=== PATIENT | male | born 1990 | race Caucasian/White ===

== ENCOUNTER 2022-11-24 11:20 | Emergency (ER) | payer BC, OTHER ==
[~2022-11-24] VITALS: Ht 182.9 cm; Wt 72.7 kg
[2022-11-24 11:52] VITALS: BP 105/48
[2022-11-24] MEDS ORDERED: cefTRIAXone 1GM/50ML D5W 50 ML IV ONE (12:45)
[2022-11-24 13:09] LABS: Basophils # (auto) 0 10 ^3/uL (0-0.2); Basophils % (auto) 0.6 % (0.0-2.0); Eosinophils # (auto) 0.2 10 ^3/uL (0-0.8); Eosinophils % (auto) 4.3 % (0.0-7.0); Hematocrit 44.2 % (41.0-53.0); Hemoglobin 15.1 g/dL (13.5-17.5); Lymphocytes # (auto) 2.2 10 ^3/uL (0.4-5.4); Lymphocytes % (auto) 41.1 % (10.0-50.0); Mean Corpuscular Hemoglobin 30.5 pg (28.0-32.0); Mean Corpuscular Hgb Conc. 34.2 g/dL (32.0-36.0); Mean Corpuscular Volume 89.3 fL (80.0-100.0); Monocytes # (auto) 0.5 10 ^3/uL (0-1.3); Monocytes % (auto) 8.9 % (0.0-12.0); Neutrophils # (auto) 2.4 10 ^3/uL (1.6-8.6); Neutrophils % (auto) 45.1 % (37.0-80.0); Nucleated Red Blood Cells % 0.1 %; Red Blood Cells 4.94 10^6/uL (4.5-5.90); Red Cell Distribution Width 13.3 % (11.8-14.3); White Blood Cell 5.2 10^3/uL (4.4-10.8)
[2022-11-24] MEDS ORDERED: cefTRIAXone SOD 1,000 MG VL IM ONE (13:30)
[2022-11-24 13:39] LABS: Potassium 4.2 mmol/L (3.5-5.1)
[2022-11-24 13:52] LABS: Albumin 4.3 g/dL (3.4-5.0); BUN/Creatinine Ratio 13.8 (10.0-20.0); Calcium 8.5 mg/dL (8.5-10.1)
[2022-11-24] MEDS ORDERED: CEPH250C PO (15:05)
== END 2022-11-24 16:38 | disposition left against medical advice (07) ==
LOC: ER 11:20
DX: L03.114 Cellulitis of left upper limb (principal)
CPT/HCPCS: 36415; 80053; 83605; 85025; 87040; 96372; 99283; J0696

== ENCOUNTER 2022-11-25 10:59 | Emergency (ER) | payer BC ==
[~2022-11-25] VITALS: Ht 182.9 cm; Wt 72.7 kg
[~2022-11-25 10:59] MED LIST: CEPH250C PO
[2022-11-25 11:18] VITALS: BP 91/96
[2022-11-25] MEDS ORDERED: cefTRIAXone SOD 1,000 MG VL IM ONE (12:30)
== END 2022-11-25 13:38 | disposition home or self-care (01) ==
LOC: ER 10:59
DX: Z48.00 Encounter for change or removal of nonsurgical wound dressing (principal); M79.632 Pain in left forearm
CPT/HCPCS: 96372; 99283; J0696